=== PATIENT | male | born 1945 | race Caucasian/White ===

== ENCOUNTER → 2017-03-17 | Outpatient (CLI) | payer MEDICARE, BC ==
[~2017-03-17] MED LIST: REGADENOSON 0.4 MG/5 ML SYRINGE ONE
== END ==
LOC: CFH 10:18
PROVIDERS: ATTEND Internal Medicine Cardiovascular Disease
DX: I25.89 Other forms of chronic ischemic heart disease (principal); I35.8 Other nonrheumatic aortic valve disorders; I10 Essential (primary) hypertension; I25.10 Atherosclerotic heart disease of native coronary artery without angina pectoris; Z95.1 Presence of aortocoronary bypass graft
CPT/HCPCS: 78452; 93017; 93306; A9502; J2785

== ENCOUNTER 2019-04-28 10:04 | Day surgery (SDC) | payer MEDICARE, BC ==
[~2019-04-28] VITALS: Ht 167.6 cm; Wt 79.5 kg
[2019-04-28] MEDS ORDERED: PROPOFOL 10 MG/ML, 20ML ONE (10:30)
[2019-04-28 10:38] VITALS: BP 160/86
[2019-04-28] MEDS ORDERED: ATOR10TA9 PO (11:04)
[2019-04-28] MEDS ORDERED: WARF1TAB9 PO ×2 (11:04)
[2019-04-28] MEDS ORDERED: TELM80TA PO (11:04)
[2019-04-28] MEDS ORDERED: METO25TA2 PO (11:04)
[2019-04-28] MEDS ORDERED: ALBU18HF INH (11:04)
[2019-04-28] MEDS ORDERED: LEVO125T PO (11:04)
[2019-04-28] MEDS ORDERED: LIOT5TAB10 PO (11:04)
[2019-04-28] MEDS ORDERED: POTA20TA6 PO (11:04)
[2019-04-28] MEDS ORDERED: HYDR25TA6 PO (11:04)
[2019-04-28 11:06] LABS: INTERNATIONAL NORMALIZED RATIO 3.2 (0.93-1.1); PROTHROMBIN TIME 34.3 Seconds (9.6-11.5)
[2019-04-28 11:08] LABS: ANION GAP 9 mmol/L (5-15); CALCIUM 9.1 mg/dL (8.5-10.1); CHLORIDE 100 mmol/L (98-107); CREATININE 0.94 mg/dL (0.7-1.3)
[2019-04-28] MEDS ORDERED: POTASSIUM CHLORIDE 20 MEQ TAB.ER.PRT PO STA (12:00)
== END 2019-04-28 13:12 | disposition home or self-care (01) ==
LOC: CACL 10:04
PROVIDERS: ATTEND Internal Medicine Cardiovascular Disease
DX: I48.20 Chronic atrial fibrillation, unspecified (principal); I10 Essential (primary) hypertension; E78.5 Hyperlipidemia, unspecified; E03.9 Hypothyroidism, unspecified; Z87.891 Personal history of nicotine dependence; Z79.899 Other long term (current) drug therapy; Z95.1 Presence of aortocoronary bypass graft; I25.10 Atherosclerotic heart disease of native coronary artery without angina pectoris; Z79.01 Long term (current) use of anticoagulants; Z95.0 Presence of cardiac pacemaker
CPT/HCPCS: 36415; 80048; 85610; 92960; 93005; J2704